=== PATIENT | female | born 1995 | race American Indian/Alaskan Native ===

== ENCOUNTER 2017-07-05 05:25 | Emergency (ER) | payer MEDICAID ==
[2017-07-05 06:10] LABS: BASO # 0.1 K/uL (0.0-0.2); BASO % 1.3 % (0.0-2.0); EOS # 0.3 K/uL (0.0-0.7); EOS % 6.6 % (0.0-4.0); HEMATOCRIT 34.5 % (34.0-47.0); LYMPH # 2.2 K/uL (1.0-4.3); LYMPH % 48.1 % (20.0-40.0); MEAN CELL VOLUME 89.8 fL (81.0-99.0); MEAN CORPUSCULAR HEMOGLOBIN 30.2 pg (27.0-31.0); MEAN CORPUSCULAR HGB CONC 33.6 g/dL (33.0-37.0); MEAN PLATELET VOLUME 11.1 fL (7.2-11.7); MONO # 0.8 K/uL (0.0-0.8); MONO % 16.7 % (0.0-10.0); RED CELL DISTRIBUTION WIDTH 14.3 % (11.5-14.5); WHITE BLOOD COUNT 4.6 K/uL (4.8-10.8)
[2017-07-05 06:17] LABS: CHLORIDE 101 mmol/L (98-107); SODIUM 138 mmol/L (132-148)
[2017-07-05 06:18] LABS: POTASSIUM 3.8 mmol/L (3.6-5.2)
[2017-07-05 06:20] LABS: ALB/GLOB RATIO 1.1 (1.0-2.1); ALKALINE PHOSPHATASE 73 U/L (38-126); AST/SGOT 21 U/L (14-36); BILIRUBIN,TOTAL 0.6 mg/dL (0.2-1.3); CARBON DIOXIDE 23 mmol/L (22-30); GFR AFRICAN-AMERICAN > 60; TOTAL PROTEIN 7.6 g/dL (6.3-8.3)
[2017-07-05 06:21] LABS: ALT/SGPT 30 U/L (9-52); BLOOD UREA NITROGEN 11 mg/dL (7-17); CALCIUM 8.5 mg/dl (8.6-10.4); GLUCOSE,RANDOM 93 mg/dL (65-105)
--- NOTE | 2017-07-05 06:21 | C.PDOC ---
History Of Present Illness 22 year old female who presents to the ER with a complaint of right leg pain for the past 2 days, associated with paresthesias. Denies trauma, back pain, urinary symptoms, or abdominal pain. Time Seen by Provider: 07/05/17 05:36 Chief Complaint (Nursing): Lower Extremity Problem/Injury History Per: Patient History/Exam Limitations: no limitations Onset/Duration Of Symptoms: Days Current Symptoms Are (Timing): Still Present Recent travel outside of the [place]: No Past Medical History Reviewed: Historical Data, Nursing Documentation, Vital Signs Vital Signs: Last Vital Signs Temp 98 F 07/05/17 06:32 Pulse 90 07/05/17 06:32 Resp 16 07/05/17 06:32 BP 114/72 07/05/17 06:32 Pulse Ox 98 07/05/17 06:32 - Medical History PMH: Anxiety, Asthma Surgical History: No Surg Hx Family History: States: Unknown Family Hx - Social History Hx Tobacco Use: No Hx Alcohol Use: Yes Hx Substance Use: No - Immunization History Hx Tetanus Toxoid Vaccination: No Hx Influenza Vaccination: No Hx Pneumococcal Vaccination: No Review Of Systems Gastrointestinal: Negative for: Abdominal Pain Genitourinary: Negative for: Dysuria, Incontinence, Hematuria Musculoskeletal: Positive for: Leg Pain. Negative for: Back Pain Neurological: Positive for: Other (Paresthesias) Physical Exam - Physical Exam Appears: Well, Non-toxic, No Acute Distress Skin: Normal Color, Warm, Dry Head: Atraumatic, Normacephalic Eye(s): bilateral: Normal Inspection, EOMI Nose: Normal Oral Mucosa: Moist Neck: Normal ROM, Supple Chest: Symmetrical Respiratory: No Accessory Muscle Use Gastrointestinal/Abdominal: Soft, No Tenderness Back: No Vertebral Tenderness, No Paraspinal Tenderness Extremity: Normal ROM (x4), Tenderness, No Pedal Edema, Calf Tenderness (Right) Extremity: Bilateral: Atraumatic, Normal Color And Temperature, Normal ROM Pulses: Left Dorsalis Pedis: Normal, Right Dorsalis Pedis: Normal Neurological/Psych: Oriented x3, Normal Speech, Normal Cognition, Normal Motor, Normal Sensation, Other (No saddle anesthesia) ED Course And Treatment - Laboratory Results Result Diagrams: 07/05/17 06:05 07/05/17 06:05 O2 Sat by Pulse Oximetry: 99 Pulse Ox Interpretation: Normal Progress Note: Blood work and venous duplex ordered. Toradol administered. Patient will be signed out pending vascular and reevaluation. Disposition - Disposition Disposition Time: 06:51 Condition: STABLE Forms: [facility] (Latvian) - Clinical Impression Clinical Impression: Right leg pain - Scribe Statement The provider has reviewed the documentation as recorded by the Scribe Scott Rosa All medical record entries made by the Scribe were at my direction and personally dictated by me. I have reviewed the chart and agree that the record accurately reflects my personal performance of the history, physical exam, medical decision making, and the department course for this patient. I have also personally directed, reviewed, and agree with the discharge instructions and disposition. Physician Patient Turnover Patient Signed Over To: Keysha Zaman Handoff Comments: Pending vascular and reevaluation.
[2017-07-05] MEDS ORDERED: Dexamethasone 4 mg/1 ml IVP STA (09:24)
[2017-07-05] MEDS ORDERED: Dexamethasone 4 mg/1 ml ONE (10:06)
[2017-07-05 11:16] VITALS: BP 113/71; PULSE 72; RESP 20; TEMP 97.7; O2SAT 100
--- NOTE | 2017-07-06 15:37 | VASCLAB ---
PROCEDURE: Right Lower Extremity Venous Duplex Exam. HISTORY: pain PRIORS: None. TECHNIQUE: Right common femoral, femoral, popliteal and posterior tibial, peroneal and great saphenous veins were evaluated. Flow was assessed with color Doppler, compressibility, assessment of phasic flow and augmentation response. Report prepared by CHRIS Starr, RVT FINDINGS: RIGHT: 1. Common Femoral Vein: 1.1. Compressibility - Fully compressible: Thrombus - None: Flow - Phasic: Augmentation -Normal: Reflux - None. 2. Femoral Vein: 2.1. Compressibility - Fully compressible: Thrombus - None: Flow - Phasic: Augmentation -Normal: Reflux - None. 3. Popliteal Vein: 3.1. Compressibility - Fully compressible: Thrombus - None: Flow - Phasic: Augmentation -Normal: Reflux - None. 4. Posterior Tibial Vein: 4.1. Compressibility - Fully compressible: Thrombus - None: Flow - Phasic: Augmentation -Normal: Reflux - None. 5. Peroneal Vein: 5.1. Compressibility - Fully compressible: Thrombus - None: Flow - Phasic: Augmentation -Normal: Reflux - None. 6. Great Saphenous Vein: 6.1. Compressibility - Fully compressible: Thrombus -None: Flow - Phasic: Augmentation - Normal: Reflux - None. OTHER FINDINGS: IMPRESSION: No evidence of deep or superficial vein thrombosis of the right lower extremity with excellent venous flow. Normal valve function noted of the right side. Normal venous flow noted in the left common femoral vein.
== END 2017-07-05 11:16 | disposition home or self-care (01) ==
LOC: C.ER 05:25
DX: M79.604 Pain in right leg (principal)
CPT/HCPCS: 80053; 85025; 93971; 96374; 96375; 99285; J1100; J1885